=== PATIENT | male | born 1960 | race Caucasian/White ===

== ENCOUNTER 2017-12-23 12:03 | Emergency (ER) | payer OTHER ==
[~2017-12-23] VITALS: Ht 190.5 cm; Wt 165.0 kg
[~2017-12-23 12:03] MED LIST: AMOCLA875 PO; FLUO10 PO; GLIM2 PO; LEVEMIR FL100 UNIT/1 SQ; LOSA50 PO; METF500 PO; OXYACE5T PO
[2017-12-23 12:29] LABS: BASOPHILS PERCENT AUTO 1 % (0-2); EOSINOPHILS ABSOLUTE AUTO 0.19 K/mm3 (0.00-0.68); EOSINOPHILS PERCENT AUTO 1 % (0-6); Hematocrit 47.5 % (37.0-53.0); Hemoglobin 15.6 g/dL (13.5-17.5); IMMATURE GRAN ABSOLUTE AUTO 0.17 K/mm3 (0.00-0.10); IMMATURE GRAN PERCENT AUTO 1 % (0-1); LYMPHOCYTES ABSOLUTE AUTO 1.92 K/mm3 (0.84-5.20); LYMPHOCYTES PERCENT AUTO 11 % (21-46); MONOCYTES ABSOLUTE AUTO 0.82 K/mm3 (0.16-1.47); MONOCYTES PERCENT AUTO 5 % (4-13); Mean Corpuscular HGB 27.2 pg (26.0-34.0); Mean Corpuscular HGB Conc 32.8 g/dL (31.5-36.5); Mean Corpuscular Volume 83 fL (80-100); Mean Platelet Volume 9.9 fL (9.1-12.4); NEUTROPHILS ABSOLUTE AUTO 14.08 K/mm3 (1.96-9.15); NEUTROPHILS PERCENT AUTO 82 % (41-73); Platelet Count 350 K/mm3 (150-400); RDW Coefficient Variation 13.2 % (11.7-14.2); RDW Standard Deviation 39.5 fL (35.1-46.3); Red Blood Cell Count 5.74 M/mm3 (4.30-5.90); White Blood Cell Count 17.28 K/mm3 (4.00-11.30)
[2017-12-23 12:50] LABS: Alanine Aminotransfer (ALT/SGP 23 U/L (12-78); Albumin, Blood 3.4 g/dL (3.4-5.0); Albumin/Globulin Ratio 0.7 (0.8-1.8); Alk Phos 114 U/L (50-136); Anion Gap 8 mmol/L (6-16); Aspartate Aminotrans (AST/SGOT 11 U/L (12-37); Bilirubin, Total 0.5 mg/dL (0.1-1.0); Blood Urea Nitrogen 11 mg/dL (8-24); Bun/Creatinine Ratio 19.2 (12.0-20.0); CO2, Blood 28 mmol/L (21-32); Calcium, Blood 9.1 mg/dL (8.5-10.1); Chloride, Blood 101 mmol/L (98-108); Creatinine, Blood 0.57 mg/dL (0.60-1.20); Globulin, Blood 4.6 g/dL (2.2-4.0); Glomerular Filtration Rate >60 (60-); Glucose, Blood 259 mg/dL (70-99); Sodium, Blood 137 mmol/L (136-145)
[2017-12-23 14:16] LABS: Source, Urine Clean Catch
[2017-12-23 14:22] LABS: Appearance, Urine Bloody (Clear); Bilirubin, Urine Neg (Neg); Blood, Urine 5+ (Neg); Color, Urine Red (P-Yellow); Glucose Qualitative, Urine 1+ (Neg); Ketones, Urine 1+ (Neg); Leukocyte Esterase, Urine Neg (Neg); Nitrite, Urine Neg (Neg); Protein, Urine 4+ (Neg); Urobilinogen, Urine NORM (Normal); pH, Urine 6.5 (5.0-8.0)
[2017-12-23 14:30] LABS: Bacteria Few /hpf; Red Blood Cells, Urine TNTC /hpf (0-2); Squamous Epithelial Cells Not Seen /hpf (Few); White Blood Cells, Urine 0-2 /hpf (0-5)
[2017-12-23] MEDS ORDERED: BASAGLAR K100 UNIT/1 (15:31)
[2017-12-23] MEDS ORDERED: ATOR40TA PO (15:32)
[2017-12-23] MEDS ORDERED: Novolog100 UNIT/1 (15:33)
[2017-12-23] MEDS ORDERED: Norco 5-325 Ta1 EACH PO (17:24)
== END 2017-12-23 17:26 | disposition home or self-care (01) ==
LOC: ER 12:03
PROVIDERS: Emergency Medicine; Physician Assistant
DX: R31.9 Hematuria, unspecified (principal); E11.9 Type 2 diabetes mellitus without complications; F32.9 Major depressive disorder, single episode, unspecified; Z87.442 Personal history of urinary calculi; Z79.899 Other long term (current) drug therapy; Z79.4 Long term (current) use of insulin; Z90.89 Acquired absence of other organs
CPT/HCPCS: 36415; 51702; 74176; 80053; 81001; 83690; 85025; 96374; 96375; 99284; J1170; J1885; J2405

== ENCOUNTER 2017-12-24 07:55 | Emergency (ER) | payer OTHER ==
[~2017-12-24] VITALS: Ht 190.5 cm; Wt 163.0 kg
[~2017-12-24 07:55] MED LIST changes: +ATOR40TA PO; +BASAGLAR K100 UNIT/1; +Norco 5-325 Ta1 EACH PO; +Novolog100 UNIT/1
== END 2017-12-24 10:29 | disposition home or self-care (01) ==
LOC: ER 07:55
DX: R31.0 Gross hematuria (principal); Z79.899 Other long term (current) drug therapy; Z79.4 Long term (current) use of insulin; Z90.89 Acquired absence of other organs
CPT/HCPCS: 51700; 51798; 99283

== ENCOUNTER 2017-12-25 11:51 | Emergency (ER) | payer OTHER ==
[~2017-12-25] VITALS: Ht 190.5 cm; Wt 163.8 kg
== END 2017-12-25 20:32 | disposition home or self-care (01) ==
LOC: ER 11:51
DX: R31.9 Hematuria, unspecified (principal); E11.9 Type 2 diabetes mellitus without complications; F32.9 Major depressive disorder, single episode, unspecified; E78.00 Pure hypercholesterolemia, unspecified; Z79.899 Other long term (current) drug therapy; Z79.4 Long term (current) use of insulin; Z90.89 Acquired absence of other organs; Z90.49 Acquired absence of other specified parts of digestive tract; Z87.891 Personal history of nicotine dependence
CPT/HCPCS: 51798; 76857; 99284

== ENCOUNTER → 2023-04-18 | Outpatient (CLI) | payer OTHER | LOC: LAB 09:46 → LAB SHORT 09:46 | PROVIDERS: Family Medicine | DX: Z51.81 Encounter for therapeutic drug level monitoring (principal); Z79.899 Other long term (current) drug therapy | CPT/HCPCS: G0480 ==

== ENCOUNTER 2025-04-11 11:05 | Inpatient (IN) | payer MEDICARE, OTHER ==
[~2025-04-11] VITALS: Ht 190.5 cm; Wt 165.7 kg
[2025-04-11 11:33] LABS: BASOPHILS PERCENT AUTO 1 % (0-2); EOSINOPHILS ABSOLUTE AUTO 0.26 K/mm3 (0.00-0.68); EOSINOPHILS PERCENT AUTO 2 % (0-6); Hematocrit 53.4 % (37.0-53.0); Hemoglobin 17.7 g/dL (13.5-17.5); IMMATURE GRAN ABSOLUTE AUTO 0.11 K/mm3 (0.00-0.10); IMMATURE GRAN PERCENT AUTO 1 % (0-1); LYMPHOCYTES ABSOLUTE AUTO 2.66 K/mm3 (0.84-5.20); LYMPHOCYTES PERCENT AUTO 20 % (21-46); MONOCYTES ABSOLUTE AUTO 0.87 K/mm3 (0.16-1.47); MONOCYTES PERCENT AUTO 7 % (4-13); Mean Corpuscular HGB 27.5 pg (26.0-34.0); Mean Corpuscular HGB Conc 33.1 g/dL (31.5-36.5); Mean Corpuscular Volume 83 fL (80-100); Mean Platelet Volume 9.1 fL (9.1-12.4); NEUTROPHILS ABSOLUTE AUTO 9.31 K/mm3 (1.96-9.15); NEUTROPHILS PERCENT AUTO 70 % (41-73); Platelet Count 294 K/mm3 (150-400); RDW Coefficient Variation 15.3 % (11.7-14.2); RDW Standard Deviation 45.1 fL (35.1-46.3); Red Blood Cell Count 6.44 M/mm3 (4.30-5.90); White Blood Cell Count 13.31 K/mm3 (4.00-11.30)
[2025-04-11 12:16] LABS: Albumin, Blood 3.4 g/dL (3.4-5.0); Albumin/Globulin Ratio 0.8 (0.8-1.8); Bilirubin, Total 0.8 mg/dL (0.1-1.0); Bun/Creatinine Ratio 23.3 (12.0-20.0); Calcium, Blood 9.2 mg/dL (8.5-10.1); Creatinine, Blood 0.69 mg/dL (0.60-1.20); Globulin, Blood 4.2 g/dL (2.2-4.0); Potassium, Blood 4.4 mmol/L (3.5-5.5); Total Protein, Blood 7.6 g/dL (6.4-8.2)
[2025-04-11] MEDS ORDERED: LOSA50 PO (15:07)
[2025-04-11] MEDS ORDERED: MELO7.5 PO (15:08)
[2025-04-11] MEDS ORDERED: GABA300 PO (15:08)
[2025-04-11] MEDS ORDERED: FARXIGA10 MG PO ×2 (15:09→17:27)
[2025-04-11] MEDS ORDERED: OMEP20ER PO (15:09)
[2025-04-11] MEDS ORDERED: TRULICITY3 MG/0.5 M SQ (15:09)
[2025-04-11] MEDS ORDERED: ELIQUIS5 M2 PO (15:10)
[2025-04-11] MEDS ORDERED: AMLODIPINE-OLM1 EAC4 PO (15:10)
[2025-04-11] MEDS ORDERED: BASAGLAR K100 UNIT/3 SC (17:16)
[2025-04-11] MEDS ORDERED: HUMALOG KW100 UNIT/1 (17:20)
[2025-04-11] MEDS ORDERED: AMLO10 PO (17:27)
[2025-04-11] MEDS ORDERED: HYDCHL25 PO (17:27)
[2025-04-11] MEDS ORDERED: Aspirin 325 MG Tab PO ONE (17:40)
[2025-04-11] MEDS ORDERED: HydrALAZINE HCl 20 MG / ML 1ML Vial IV PRN (17:40)
[2025-04-11] MEDS ORDERED: Nitroglycerin 0.4 MG SUBL SL PRN (17:45)
[2025-04-11] MEDS ORDERED: Furosemide 10 MG/ML 4ML Vial IV SCH (18:00)
[2025-04-11 18:09] LABS: Anti-Xa UFH, PHA Monitoring <0.10 IU/mL
[2025-04-11] MEDS ORDERED: Dose Adjust by Pharmacy XX STA (18:31)
[2025-04-11] MEDS ORDERED: Heparin Sodium,Porcine/0.5 NS 500 ML IV SCH (18:35)
[2025-04-11] MEDS ORDERED: Insulin Glargine-Yfgn 100 Unit/mL 3 ML SYR SC SCH (21:00)
[2025-04-11] MEDS ORDERED: Gabapentin 300 MG Cap PO SCH (21:00)
[2025-04-11] MEDS ORDERED: Insulin Human Lispro 100 Units/ML 3ML Syringe SC SCH (21:00)
[2025-04-12] MEDS ORDERED: Dose Adjust by Pharmacy XX STA ×4 (02:41→23:38)
[2025-04-12] MEDS ORDERED: Heparin Sodium 5000 Units/ML 1ML MDV IV ONE (02:45)
[2025-04-12] MEDS ORDERED: Omeprazole 20 MG CapCR PO SCH (06:00)
[2025-04-12 06:19] LABS: BASOPHILS ABSOLUTE AUTO 0.07 K/mm3 (0.00-0.23); BASOPHILS PERCENT AUTO 1 % (0-2); EOSINOPHILS ABSOLUTE AUTO 0.32 K/mm3 (0.00-0.68); EOSINOPHILS PERCENT AUTO 3 % (0-6); Hemoglobin 17.8 g/dL (13.5-17.5); IMMATURE GRAN ABSOLUTE AUTO 0.09 K/mm3 (0.00-0.10); IMMATURE GRAN PERCENT AUTO 1 % (0-1); LYMPHOCYTES PERCENT AUTO 25 % (21-46); MONOCYTES ABSOLUTE AUTO 0.75 K/mm3 (0.16-1.47); MONOCYTES PERCENT AUTO 7 % (4-13); Mean Corpuscular HGB 27.3 pg (26.0-34.0); Mean Corpuscular Volume 83 fL (80-100); Mean Platelet Volume 9.4 fL (9.1-12.4); NEUTROPHILS ABSOLUTE AUTO 7.31 K/mm3 (1.96-9.15); NEUTROPHILS PERCENT AUTO 65 % (41-73); Platelet Count 282 K/mm3 (150-400); RDW Coefficient Variation 15.8 % (11.7-14.2); Red Blood Cell Count 6.53 M/mm3 (4.30-5.90); White Blood Cell Count 11.34 K/mm3 (4.00-11.30)
[2025-04-12 06:45] LABS: Bun/Creatinine Ratio 28.7 (12.0-20.0); Creatinine, Blood 0.59 mg/dL (0.60-1.20); Potassium, Blood 3.5 mmol/L (3.5-5.5)
[2025-04-12] MEDS ORDERED: Aminophylline 250MG / 10ML 10 ML Vial ONE (07:22)
[2025-04-12] MEDS ORDERED: Regadenoson 0.4 MG/5 ML SYRINGE ONE (07:22)
[2025-04-12] MEDS ORDERED: Insulin Regular 100 UNIT/ML 10ML Vial SC SCH (07:30)
[2025-04-12 08:47] VITALS: BP 179/110
[2025-04-12] MEDS ORDERED: Losartan Potassium 50 MG Tab PO SCH (09:00)
[2025-04-12] MEDS ORDERED: Atorvastatin 40 MG Tab PO SCH (09:00)
[2025-04-12] MEDS ORDERED: AmLODIPine Besylate 5 MG Tab PO SCH (09:00)
--- NOTE | 2025-04-12 09:19 | NUR ---
ADMISSION ASSESSMENT NOTE: PATIENT ARRIVES TO ROOM VIA WHEELCHAIR AT 0843 FROM ER FOR DX'S OF CP. PATIENT TRANSFERRED TO BED c SBA. ADMISSION, MEDRIC AND ASSESSMENT COMPLETED. PATIENT A/OX4, SPEECH CLEAR, ANSWER TO QUESTIONS APPROPRIATELY AND ABLE TO MAKE NEEDS KNOWN. PATIENT DENIES CP/PRESSURE, SOB, N/V AND DIZZINESS. PATIENT PLACED ON TELE PER ORDER, SR HR AT 66 BPM. PATIENT HAD HIS 1ST PART OF STRESS TEST DONE IN ED. PER PATIENT SECOND PART OF STRESS TEST WILL BE TOMORROW. ADMISSION VITALS TAKEN, HYPERTENSIVE. PATIENT ON HEPARIN GTT AT 17 U/KG/HR-39.4 MLS/HR, RATE CONTROLLED BY PHARMACIST. PATIENT ORIENTATED TO ROOM AND CALL SYSTEM. PATIENT LEFT THE ROOM AT 0915 TO IMAGING.
[2025-04-12 09:44] VITALS: BP 156/89
[2025-04-12 11:39] VITALS: BP 149/86
[2025-04-12 15:25] VITALS: BP 140/77
--- NOTE | 2025-04-12 17:11 | NUR ---
SHIFT SUMMARY: PATIENT HAS HAD NO CHANGES SINCE ADMITTED TO UNIT. PATIENT CONTINUES TO REPORTS NO CP/PRESSURE, SOB, N/V AND DIZZINESS. PATIENT ON TELE SR, HR IN THE 60'S BPM. PATIENT HAD HIS ECHO AND 1ST PART OF STRESS TEST DONE TODAY, 2ND PART OF STRESS TEST WILL BE TOMORROW, NO CAFFIENE AND NPO AT [place]. PATIENT ON HEPARIN GTT AT 17 U/KG/HR-39.4 MLS/HR, RATE CONTROLLED BY PHARMACIST. PATIENT ON CONS CARB DIET c BLOOD SUGAR ACCU CHECK AC/HS. PATIENT RECEIVED INSULIN PER EMAR SS COVERAGE. VITAL SIGNS REVIEWED. PATIENT A/OX4, CALM, PLEASANT AND COOPERATIVE c CARE, CALLS APPROPRIATELY, CONTINENT OF BLADDER AND AMBULATES TO BATHROOM c SBA. PATIENT SITTING UP IN THE RECLINER CHAIR, TOLERATED WELL. CALL LIGHT IN REACH.
[2025-04-12 20:42] VITALS: BP 144/78
[2025-04-13 01:01] VITALS: BP 122/80
[2025-04-13 03:14] VITALS: BP 154/76
[2025-04-13 04:42] LABS: Hematocrit 51.4 % (37.0-53.0); Hemoglobin 16.9 g/dL (13.5-17.5); Mean Platelet Volume 9.5 fL (9.1-12.4); Platelet Count 253 K/mm3 (150-400)
[2025-04-13] MEDS ORDERED: Dose Adjust by Pharmacy XX STA (05:23)
--- NOTE | 2025-04-13 06:39 | NUR ---
SHIFT SUMMARY: EDGAR IS A&OX4. VSS, NO ACUTE EVENTS OVERNIGHT. HEPARIN INFUSING PER ORDER, IV TO LEFT HAND AND LEFT AC PATENT. PT HAS DENIED CHEST PAIN THROUGHOUT THE SHIFT, WAS TOLERATING PO INTAKE WELL PRIOR TO BEING MADE NPO AT MIDNIGHT. PT IS SCHEDULED TO HAVE THE SECOND HALF OF THE STRESS TEST THIS AM. HE IS INDEPENDENT IN THE ROOM AND HAS DENIED ANY COMPLAINTS OR NEEDS THIS SHIFT. HE IS LYING IN BED WITH THE CALL LIGHT IN REACH. WILL GIVE REPORT TO DAY SHIFT RN.
[2025-04-13 07:44] VITALS: BP 134/84
[2025-04-13 11:36] VITALS: BP 119/65
[2025-04-13] MEDS ORDERED: Aspirin 325 MG Tab PO ONE (13:50)
--- NOTE | 2025-04-13 13:50 | NUR ---
CARDIOLOGY CONSULT NOTE: PATIENT SECOND PART OF STRESS TEST WAS COMPLETED THIS AM c ABNORMAL RESULT NOTED. DR. ROSALES (CARDIOLOGY) CONSULTED. DR. ROSALES CAME IN TO ROOM AT 1340, SPOKE TO PATIENT c PLAN OF CARE AND DISCUSSED THE RISK/BENIFITS OF HAVING ANGIOGRAM PROCEDURE DONE. PATIENT VERBALIZED UNDERSTANDING AND AGREED c THE PROCEDURE. PER DR. ROSALES THE PROCEDURE WILL HAPPEN ROUGHLY AT 1300. RECEIVED VO FROM DR. ROSALES TO GIVE OT DOSE 325 MG ASPIRIN PO NOW, PERFORM 12 LEAD EKG, CL FOR BREAKFAST AND NPO RIGHT AFTER BREAKFAST.
[2025-04-13 15:21] VITALS: BP 131/66
--- NOTE | 2025-04-13 16:04 | NUR ---
SHIFT SUMMARY: PATIENT HAS HAD NO CHANGES THIS SHIFT. PATIENT DENIES CP/PRESSURE, SOB, N/V AND DIZZINESS. PATIENT HAS HAD NO EVENTS ON TELE, SR HR IN THE 60'S BPM c IST DHB, PAC AND BBB. PATIENT RECEIVED SCHEDULED MEDS PER EMAR. PATIENT STILL ON HEPARIN GTT AT 17 U/KG/HR-39.4 MLS/HR, RATE CONTROLLED BY PHARMACIST. PATIENT WILL BE NPO AFTER BREAKFAST FOR ANGIOGRAM. PATIENT HAS GOOD APPETITE, CONT OF BAB, AMBULATES TO BATHROOM INDEPENDENTLY, RESTING IN RECLINER CHAIR ON/OFF T/O SHIFT. VITAL SIGNS REVIEWED. PATIENT HAS HAD NO COMPLAINTS OR DENIES NEW CONCERNED THIS SHIFT. PATIENT A/OX4, PLEASANT AND COOPERATIVE c CARE, CALLS APPROPRIATELY AND ABLE TO MAKE NEEDS KNOWN. CALL LIGHT IN REACH.
[2025-04-13 20:24] VITALS: BP 124/74
[2025-04-14] VITALS (14 sets, daily range): BP systolic 104–151; BP diastolic 64–96
[2025-04-14 02:56] LABS: BASOPHILS PERCENT AUTO 1 % (0-2); EOSINOPHILS ABSOLUTE AUTO 0.42 K/mm3 (0.00-0.68); EOSINOPHILS PERCENT AUTO 4 % (0-6); Hematocrit 50.7 % (37.0-53.0); IMMATURE GRAN PERCENT AUTO 1 % (0-1); LYMPHOCYTES ABSOLUTE AUTO 2.89 K/mm3 (0.84-5.20); LYMPHOCYTES PERCENT AUTO 27 % (21-46); MONOCYTES PERCENT AUTO 8 % (4-13); Mean Corpuscular HGB 27.4 pg (26.0-34.0); Mean Corpuscular HGB Conc 33.5 g/dL (31.5-36.5); Mean Corpuscular Volume 82 fL (80-100); Mean Platelet Volume 9.1 fL (9.1-12.4); NEUTROPHILS ABSOLUTE AUTO 6.32 K/mm3 (1.96-9.15); NEUTROPHILS PERCENT AUTO 59 % (41-73); Platelet Count 267 K/mm3 (150-400); RDW Coefficient Variation 14.8 % (11.7-14.2); RDW Standard Deviation 43.8 fL (35.1-46.3); Red Blood Cell Count 6.21 M/mm3 (4.30-5.90); White Blood Cell Count 10.73 K/mm3 (4.00-11.30)
[2025-04-14 03:23] LABS: Anion Gap 8 mmol/L (3-11); Blood Urea Nitrogen 17 mg/dL (8-24); CHOL/HDL RATIO 3.2; CO2, Blood 29 mmol/L (21-32); Calcium, Blood 8.7 mg/dL (8.5-10.1); Chloride, Blood 103 mmol/L (98-108); Cholesterol 123 mg/dL (50-200); Creatinine, Blood 0.65 mg/dL (0.60-1.20); Glomerular Filtration Rate 105 (60-); Glucose, Blood 141 mg/dL (70-99); HDL Cholesterol 39 mg/dL (>39); LDL/HDL RATIO 1.5; Low Density Lipoprotein Chol 59 mg/dL (0-110); Potassium, Blood 3.6 mmol/L (3.5-5.5); Sodium, Blood 136 mmol/L (136-145); Triglycerides 126 mg/dL (30-160); Very Low Density Lipoprot Chol 25 mg/dL (6-32)
[2025-04-14] MEDS ORDERED: Dose Adjust by Pharmacy XX STA (04:26)
--- NOTE | 2025-04-14 05:23 | NUR ---
PT A&OX4 INDEPENDENT IN RM. BLE TRACE EDEMA WITH HEMOSIDERIN STAINING NOTED. CAP REFILL UNDER 3 SECONDS TO FINGERS AND OVER 3 SECONDS FOR TOES. PT SLEPT T/O THE NIGHT. NO ACUTE CHANGES NOTED THIS SHIFT. IVF INFUSING RX WITHOUT DIFFICULTY.
[2025-04-14] MEDS ORDERED: Aspirin 81 MG Chew PO SCH (09:00)
--- NOTE | 2025-04-14 14:26 | NUR ---
REVIEWED EMAR, ASSESSMENT, CARE PLAN AND EDUCATION CHARTED BY [employer] AND I AGREE WITH HER DOCUMENTATION FOR THIS PATIENT.
[2025-04-14] MEDS ORDERED: NS 250 ML IV ONE (14:29)
[2025-04-14] MEDS ORDERED: NS 1,000 ML IV ONE ×2 (14:29→14:37)
[2025-04-14] MEDS ORDERED: Verapamil HCL 2.5 MG/ML 2ML Injection ONE (14:29)
[2025-04-14] MEDS ORDERED: Heparin Sodium 1000 Units/ML 10ML MDV ONE ×2 (14:29→15:12)
[2025-04-14] MEDS ORDERED: Nitroglycerin 2 MG/20 ML BTL ONE (14:30)
[2025-04-14] MEDS ORDERED: Midazolam HCl 1MG / ML 2ML Vial ONE (14:37)
[2025-04-14] MEDS ORDERED: FentaNYL Citrate 50 MCG/ML 2 ML Injection ONE (14:37)
--- NOTE | 2025-04-14 14:49 | NUR ---
PT TRANSFERED TO NUTRITION PROGRAM INSTRUCTOR & POST PROCEDURE TO PCU 15, CALLED & GAVE REPORT TO NOBLE
[2025-04-14] MEDS ORDERED: Ticagrelor 90 MG TABLET ONE (15:05)
--- NOTE | 2025-04-14 17:35 | NUR ---
PATIENT TRANSFER TO PCU S/P ANGIOGRAM. PATIENT ARRIVES AT 1530. ALERT AND ORIENTED. DENIES PAINS. STAND AND PIVOT TO RECLINER. DENIES NUMBNESS/TINGLING. PERRLA. TELE SHOWING SR WITH PAC'S. HR 60'S. SBP 110-120'S. RIGHT RADIAL SITE WITH INFLATED TR BAND AND ARM BOARD. SITE C/D/I. NO SIGNS OF BLEEDING. RADIAL PRECAUTIONS REVIEWED WITH PATIENT. POST OP VITALS IN PROGRESS. AT BEDSIDE. ON ROOM AIR, LUNG SOUNDS CLEAR. DENIES SOB/COUGH. BOWEL TONES PRESENT. ACHS BLOOD SUGARS. URINAL AT BEDSIDE. EATING DINNER AT THIS TIME. BLE DISCOLORATION WITH SCABBING TO RIGHT BYRNE. REFUSED HOSPITAL FALL PREVENTION SOCKS. PATIENT EDUCATED ON POST ANGIO PROTOCOL, ANTICOAGULATION, CARDIAC REHAB, AND NEW CARDIAC MEDICATIONS. CALL LIGHT IN REACH. DENIES NEEDS AT THIS TIME.
--- NOTE | 2025-04-14 18:39 | NUR ---
TR BAND FULLY DEFLATED AT 1834. SITE REMAINS SOFT AND NONTENDER. NO SIGNS OF BLEEDING. PATIENT SITTING IN RECLINER WATCHING TV. DENIES NEEDS. CALL LIGHT IN REACH.
[2025-04-14] MEDS ORDERED: Clopidogrel Bisulfate 300 MG TABLET PO SCH (21:00)
--- NOTE | 2025-04-14 21:22 | NUR ---
care assumption Pt a&ox4. vss. tr band in place, no bruising, no bleeding, no hematoma. TR band removed approx 1999. Opsite in place. Arm board in place. plavix loaded per emar this evening. indpendent in room. Pt currently resting in room, call light in reach.
--- NOTE | 2025-04-14 23:28 | NUR ---
END OF SHIFT SUMMARY NO ACUTE CHANGES SINCE CARE ASSUMPTION. VSS. R RADIAL SITE NO BLEEDING NOTED, ARM BOARD IN PLACE. TELEMETRY SHOWS SINUS LIZET/NSR, HR 40'S-70'S. UP TO BATHROOM INDEPENDENTLY THIS SHIFT TO VOID. CURRENTLY SLEEPING IN BED, EVEN CHEST RISE AND FALL. CALL LIGHT IN REACH.
--- NOTE | 2025-04-14 23:37 | NUR ---
UPDATE PT DESATTING TO LOW 80'S WHEN SLEEPING. RECOVERS QUICKLY. PLACED ON 2L NC.
[2025-04-15 01:36] VITALS: BP 145/80
[2025-04-15 02:40] LABS: BASOPHILS PERCENT AUTO 1 % (0-2); EOSINOPHILS ABSOLUTE AUTO 0.46 K/mm3 (0.00-0.68); EOSINOPHILS PERCENT AUTO 4 % (0-6); Hematocrit 50.2 % (37.0-53.0); Hemoglobin 16.8 g/dL (13.5-17.5); IMMATURE GRAN ABSOLUTE AUTO 0.11 K/mm3 (0.00-0.10); IMMATURE GRAN PERCENT AUTO 1 % (0-1); LYMPHOCYTES ABSOLUTE AUTO 2.35 K/mm3 (0.84-5.20); LYMPHOCYTES PERCENT AUTO 20 % (21-46); MONOCYTES PERCENT AUTO 8 % (4-13); Mean Corpuscular HGB 27.4 pg (26.0-34.0); Mean Corpuscular HGB Conc 33.5 g/dL (31.5-36.5); Mean Corpuscular Volume 82 fL (80-100); Mean Platelet Volume 9.6 fL (9.1-12.4); NEUTROPHILS ABSOLUTE AUTO 7.92 K/mm3 (1.96-9.15); NEUTROPHILS PERCENT AUTO 66 % (41-73); Platelet Count 278 K/mm3 (150-400); RDW Standard Deviation 44.1 fL (35.1-46.3); Red Blood Cell Count 6.13 M/mm3 (4.30-5.90); White Blood Cell Count 11.94 K/mm3 (4.00-11.30)
[2025-04-15 02:58] LABS: Bun/Creatinine Ratio 26.3 (12.0-20.0); Calcium, Blood 8.7 mg/dL (8.5-10.1); Creatinine, Blood 0.57 mg/dL (0.60-1.20); Potassium, Blood 3.1 mmol/L (3.5-5.5)
[2025-04-15] MEDS ORDERED: Potassium Chloride 40 MEQ in NS 250 ML IV ONE (03:40)
[2025-04-15] MEDS ORDERED: NS 250 ML IV PRN (03:50)
--- NOTE | 2025-04-15 05:43 | NUR ---
AFTER RESUMING CARE OF PATIENT FROM PRIOR NURSE, I NOTED PT'S RHYTHM TO HAVE SEVERAL PAUSES THAT SELF CORRECTED BUT WERE WORRISOME FOR THIS RN. VSS, ASYMPTOMATIC. RESIDENT CALLED AND NOTIFIED, LABS AT 0200 OBTAINED FOR PT TO CHECK ELECTROLYTES, K+ 3.1, RELAYED ALL ELECTROLYTES TO RESIDENT. ORDER PLACED BY RESIDENT FOR IV INFUSION OF POTASSIUM. 250ML SALINE BAG ALSO RUNNING TO ASSIST WITH ANY POTENTIAL PAIN. IV SITE FREQUENTLY CHECKED, PT VERBALIZES UNDERSTANDING AFTER THIS RN TAUGHT PT TO NOTIFY IMMEDIATELY IF BURNING WERE TO OCCUR OR ANY ABNORMAL PAIN. PT TOLERATING MEDICATION WELL. R RADIAL SITE WDL, NO CONCERNS AT THIS TIME, ON O2 AT NIGHT HE NOTED TO DESAT.
[2025-04-15] MEDS ORDERED: Pantoprazole Sodium 20 MG Tab PO SCH (06:00)
[2025-04-15 06:16] VITALS: BP 127/74
[2025-04-15 07:36] VITALS: BP 148/80
[2025-04-15] MEDS ORDERED: Clopidogrel Bisulfate 300 MG TABLET PO SCH (09:00)
[2025-04-15] MEDS ORDERED: Potassium Chloride 20 MEQ TabCR PO ONE (09:00)
[2025-04-15] MEDS ORDERED: Apixaban 5 MG Tab PO SCH (09:00)
[2025-04-15] MEDS ORDERED: PANT20 PO (11:18)
[2025-04-15] MEDS ORDERED: ASPI81CH PO (11:21)
[2025-04-15] MEDS ORDERED: CLOP75 PO (11:22)
--- NOTE | 2025-04-15 12:29 | NUR ---
Pt was discharged at 1143. This nursing informatics specialist printed off papers including follow up appointments with contact information, medication list with changes highlights, and educational material regarding care fr the radial site following interventional radiology procedure. Pt expressed understanding with no further questions or concerns. Pt was wheeled out front to his .
[2025-04-16] MEDS ORDERED: Clopidogrel Bisulfate 75 MG Tab PO SCH (09:00)
== END 2025-04-15 11:56 | disposition home or self-care (01) | DRG 321 ==
LOC: ER 11:05 → ERHOLD 11:07 → MEDS 04-12 08:49 → PCU 04-14 14:45
PROVIDERS: Internal Medicine; Student in an Organized Health Care Education/Training Program; ADMIT Family Medicine
PROC: 027034Z Dilation of Coronary Artery, One Artery with Drug-eluting Intraluminal Device, Percutaneous Approach (ICD-10-PCS; principal; 2025-04-14)
PROC: B2111ZZ Fluoroscopy of Multiple Coronary Arteries using Low Osmolar Contrast (ICD-10-PCS; 2025-04-14)
PROC: 4A023N7 Measurement of Cardiac Sampling and Pressure, Left Heart, Percutaneous Approach (ICD-10-PCS; 2025-04-14)
PROC: B241ZZ3 Ultrasonography of Multiple Coronary Arteries, Intravascular (ICD-10-PCS; 2025-04-14)
DX: I25.110 Atherosclerotic heart disease of native coronary artery with unstable angina pectoris (principal); I50.33 Acute on chronic diastolic (congestive) heart failure; E87.1 Hypo-osmolality and hyponatremia; Z68.42 Body mass index [BMI] 45.0-49.9, adult; I11.0 Hypertensive heart disease with heart failure; I48.0 Paroxysmal atrial fibrillation; E66.01 Morbid (severe) obesity due to excess calories; E78.5 Hyperlipidemia, unspecified; E11.9 Type 2 diabetes mellitus without complications; F40.240 Claustrophobia; G47.33 Obstructive sleep apnea (adult) (pediatric); Z79.01 Long term (current) use of anticoagulants; Z79.899 Other long term (current) drug therapy; Z79.4 Long term (current) use of insulin; Z91.199 Patient's noncompliance with other medical treatment and regimen due to unspecified reason; Z90.49 Acquired absence of other specified parts of digestive tract; Z98.890 Other specified postprocedural states; R07.9 Chest pain, unspecified
CPT/HCPCS: 36415; 71046; 76937; 78452; 80048; 80053; 80061; 82947; 83735; 83880; 84132; 84484; 85014; 85018; 85025; 85049; 85347; 85520; 85610; 85730; 92978; 93005; 93010; 93017; 93306; 93458; 94760; 96374; 96375; 96376; 99152; 99153; 99285-25; A9270; A9500; C1725; C1753; C1769; C1874; C1887; C1894; C9600; G0378; J0280; J1644; J1815; J1938; J2250; J2470; J2785; J3010; J3480; J7030; J7050; Q9967